=== PATIENT | female | born 1945 | race Two or more races ===

== ENCOUNTER 2017-08-06 14:24 | Inpatient (IN) | payer MEDICARE ==
[~2017-08-06] VITALS: Ht 160 cm; Wt 85.0 kg
[2017-08-06] MEDS ORDERED: SODIUM CHLORIDE 0.9% 1,000 ML IVB ONE (15:00)
[2017-08-06 15:10] LABS: Basophils # (auto) 0.2 uL; Basophils % (auto) 2.4 % (0.0-2.0); Eosinophils # (auto) 0.7 uL; Eosinophils % (auto) 8.3 % (0.0-7.0); Hematocrit 36.2 % (36.0-46.0); Lymphocytes % (auto) 24.1 % (10.0-50.0); Mean Corpuscular Hemoglobin 30.5 pg (28.0-32.0); Mean Corpuscular Hgb Conc. 33.3 g/dL (32.0-36.0); Mean Corpuscular Volume 91.7 fL (80.0-100.0); Monocytes # (auto) 0.5 uL; Monocytes % (auto) 6.6 % (0.0-12.0); Neutrophils # (auto) 4.9 uL; Neutrophils % (auto) 58.6 % (37.0-80.0); Nucleated Red Blood Cells % 0.1 %; Platelet Count (auto) 171 10^3/uL (140-450); Red Blood Cells 3.95 10^6/uL (4.0-5.20); Red Cell Distribution Width 13.6 % (11.8-14.3); White Blood Cell 8.3 10^3/uL (4.4-10.8)
[2017-08-06 15:31] LABS: Alanine Aminotransferase 19 U/L (13-56); Albumin 3.7 g/dL (3.4-5.0); Alkaline Phosphatase 60 U/L (45-117); Anion Gap 10 (5-15); Aspartate Aminotransferase 18 U/L (15-37); BUN/Creatinine Ratio 26.3; Bilirubin, Total 0.5 mg/dL (0.2-1.0); Blood Urea Nitrogen 26 mg/dL (7-18); Calcium 8.7 mg/dL (8.5-10.1); Carbon Dioxide 25 mmol/L (21-32); Chloride 106 mmol/L (98-107); GFR African American 72 mL/min; GFR Non-African American 59 mL/min; Glucose 83 mg/dL (74-106); INR 0.96 (0.9-1.15); Magnesium 2.7 mg/dL (1.6-2.6); Partial Thromboplastin Time 30.2 sec (22.64-33.71); Prothrombin Time 10.5 sec (9.37-12.3); Sodium 141 mmol/L (136-145); Total Protein 7.5 g/dL (6.4-8.2)
[2017-08-06] MEDS: SODIUM CHLORIDE 0.9% 1,000 ML IV SCH (16:00)
[2017-08-06] MEDS ORDERED: LABETALOL HCL 5 MG/ML ML 20ML VIAL IV PRN (16:30)
[2017-08-06] MEDS ORDERED: HYDROcodone-ACET 5/325MG TAB PO PRN (16:30)
[2017-08-06] MEDS ORDERED: LACTULOSE 20Gm/30ML SOLN PO PRN (16:30)
[2017-08-06] MEDS ORDERED: ALBUTEROL SULF 2.5 MG/0.5ML(0.5%) NEB SOLN NEB PRN (16:30)
[2017-08-06] MEDS ORDERED: MORPHINE SULFATE 4 MG/ML SYR/VIAL IV PRN ×2 (16:30)
[2017-08-06] MEDS ORDERED: LORazepam 0.5 MG TAB PO PRN (16:30)
[2017-08-06] MEDS ORDERED: NITROGLYCERIN 0.4 MG SL TAB SL PRN (16:30)
[2017-08-06 16:36] LABS: Urine Bacteria NONE SEEN /hpf (None Seen); Urine Blood Negative /uL (Negative); Urine WBC <1 /hpf (0 - 5)
[2017-08-06 17:10] LABS: Folate (Folic Acid) > 24.00 ng/mL (5.38-24)
[2017-08-06 20:27] VITALS: BP 136/61
[2017-08-06 21:15] VITALS: BP 127/49
[2017-08-06 21:48] VITALS: BP 127/49
[2017-08-06] MEDS: ATORVASTATIN 20 MG TAB PO SCH (22:10)
[2017-08-06] MEDS: TEMAZEPAM 15 MG CAP PO PRN (22:11)
[2017-08-06] MEDS: ACETAMINOPHEN 500 MG TAB PO PRN (22:11)
[2017-08-07] MEDS: SODIUM CHLORIDE 0.9% 1,000 ML IV SCH ×2 (04:49→14:00)
[2017-08-07 05:40] VITALS: BP 112/51
[2017-08-07 06:58] LABS: Cholesterol 158 mg/dL (< 200); HDL Cholesterol 59 mg/dL (40-59); LDL Cholesterol 87 mg/dL (< 100); Triglycerides 116 mg/dL (< 150)
[2017-08-07 09:00] VITALS: BP 124/69
[2017-08-07] MEDS: ENOXAPARIN SOD 40 MG/0.4 ML SYRINGE SC SCH (09:08)
[2017-08-07] MEDS: ACETAMINOPHEN 500 MG TAB PO PRN (09:09)
[2017-08-07] MEDS: ENALAPRIL MALEATE 2.5 MG TAB PO SCH (09:10)
[2017-08-07] MEDS: ASPirin 81 mg TAB PO SCH (09:11)
[2017-08-07] MEDS: PROMETHAZINE HCL 25 MG/ML 1ML IV PRN ×2 (11:20→18:35)
[2017-08-07 12:00] VITALS: BP 119/61
[2017-08-07] MEDS ORDERED: PANTOPRAZOLE 40 MG/10 ML VIAL IV ONE (13:30)
[2017-08-07] MEDS ORDERED: LORazepam 2MG/ML-1ML VIAL IV ONE (14:15)
[2017-08-07 15:00] VITALS: BP 108/60
[2017-08-07] MEDS: TEMAZEPAM 15 MG CAP PO PRN (21:31)
[2017-08-07] MEDS: ATORVASTATIN 20 MG TAB PO SCH (21:31)
[2017-08-07 22:00] VITALS: BP 146/67
[2017-08-07] MEDS ORDERED: PANTOPRAZOLE 40 MG/10 ML VIAL IV SCH (22:00)
[2017-08-08] VITALS (7 sets, daily range): BP systolic 100–144; BP diastolic 36–73
[2017-08-08] MEDS: PROMETHAZINE HCL 25 MG/ML 1ML IV PRN ×3 (02:25→17:16)
[2017-08-08] MEDS: SODIUM CHLORIDE 0.9% 1,000 ML IV SCH (06:52)
[2017-08-08 07:24] LABS: Basophils # (auto) 0.1 uL; Basophils % (auto) 1.3 % (0.0-2.0); Eosinophils # (auto) 0.8 uL; Eosinophils % (auto) 10.6 % (0.0-7.0); Hematocrit 30.2 % (36.0-46.0); Hemoglobin 10.3 g/dL (12.2-16.2); Lymphocytes % (auto) 27.4 % (10.0-50.0); Mean Corpuscular Hemoglobin 31.5 pg (28.0-32.0); Mean Corpuscular Hgb Conc. 34.1 g/dL (32.0-36.0); Mean Corpuscular Volume 92.2 fL (80.0-100.0); Monocytes # (auto) 0.6 uL; Neutrophils # (auto) 3.9 uL; Neutrophils % (auto) 52.7 % (37.0-80.0); Platelet Count (auto) 142 10^3/uL (140-450); Red Blood Cells 3.28 10^6/uL (4.0-5.20); Red Cell Distribution Width 13.3 % (11.8-14.3); White Blood Cell 7.3 10^3/uL (4.4-10.8)
[2017-08-08 07:52] LABS: BUN/Creatinine Ratio 21.4; Calcium 8.5 mg/dL (8.5-10.1); Magnesium 2.5 mg/dL (1.6-2.6); Potassium 4.5 mmol/L (3.5-5.1)
[2017-08-08] MEDS: PANTOPRAZOLE 40 MG TAB PO SCH (08:36)
[2017-08-08] MEDS: ACETAMINOPHEN 500 MG TAB PO PRN (08:40)
[2017-08-08] MEDS ORDERED: B CO PO (09:35)
[2017-08-08] MEDS ORDERED: CHOL3000 PO (09:35)
[2017-08-08] MEDS ORDERED: [UNRECOGNIZED DRUG - CODE] PO (09:35)
[2017-08-08] MEDS ORDERED: ZOLP10TA6 PO (09:35)
[2017-08-08] MEDS ORDERED: IPRA0.03 (09:35)
[2017-08-08] MEDS ORDERED: FOLI1TAB6 PO (09:35)
[2017-08-08] MEDS ORDERED: AMLO5TAB2 PO (09:35)
[2017-08-08] MEDS ORDERED: ROPI1TAB22 PO (09:35)
[2017-08-08] MEDS ORDERED: FLUT0.05 NAS (09:35)
[2017-08-08] MEDS ORDERED: GABA100C9 PO (09:35)
[2017-08-08] MEDS ORDERED: OMEP20CA74 PO (09:35)
[2017-08-08] MEDS ORDERED: LEVO25TA6 PO (09:35)
[2017-08-08] MEDS ORDERED: NITR0.4S29 SL (09:35)
[2017-08-08] MEDS ORDERED: ASPI-378 PO (09:35)
[2017-08-08] MEDS ORDERED: ESTR1TAB3 PO (09:35)
[2017-08-08] MEDS ORDERED: IPR002IS HHN (09:35)
[2017-08-08] MEDS ORDERED: ESCI5TAB PO (09:35)
[2017-08-08] MEDS: ASPirin 81 mg TAB PO SCH (10:11)
[2017-08-08] MEDS: ENOXAPARIN SOD 40 MG/0.4 ML SYRINGE SC SCH (10:12)
[2017-08-08] MEDS: ENALAPRIL MALEATE 2.5 MG TAB PO SCH (10:12)
[2017-08-08] MEDS: GABAPENTIN 100 MG CAP PO SCH ×2 (17:22→21:41)
[2017-08-08] MEDS: ATORVASTATIN 20 MG TAB PO SCH (21:41)
[2017-08-08] MEDS: TEMAZEPAM 15 MG CAP PO PRN (21:41)
[2017-08-09 05:24] VITALS: BP 133/69
[2017-08-09] MEDS: GABAPENTIN 100 MG CAP PO SCH ×4 (06:15→21:37)
[2017-08-09] MEDS: SODIUM CHLORIDE 0.9% 1,000 ML IV SCH ×2 (06:36→12:06)
[2017-08-09] MEDS ORDERED: FURO40TA4 PO (08:05)
[2017-08-09] MEDS: ASPirin 81 mg TAB PO SCH (09:03)
[2017-08-09] MEDS: PANTOPRAZOLE 40 MG TAB PO SCH (09:03)
[2017-08-09] MEDS: ENOXAPARIN SOD 40 MG/0.4 ML SYRINGE SC SCH (09:03)
[2017-08-09 10:46] VITALS: BP 129/64
[2017-08-09 13:00] VITALS: BP 135/71
[2017-08-09 14:00] VITALS: BP 118/52
[2017-08-09] MEDS: ALBUTEROL SULF 2.5 MG/0.5ML(0.5%) NEB SOLN NEB PRN (19:34)
[2017-08-09] MEDS: IPRATROPIUM BROM 0.5 MG/2.5ML INH SOL NEB PRN (19:35)
[2017-08-09 20:15] VITALS: BP 118/52
[2017-08-09] MEDS: ATORVASTATIN 20 MG TAB PO SCH (21:37)
[2017-08-09] MEDS: TEMAZEPAM 15 MG CAP PO PRN (21:38)
[2017-08-09 22:00] VITALS: BP 121/92
[2017-08-10 05:00] VITALS: BP 110/54
[2017-08-10] MEDS: GABAPENTIN 100 MG CAP PO SCH ×4 (05:52→21:34)
[2017-08-10 08:16] VITALS: BP 141/69
[2017-08-10] MEDS: ENOXAPARIN SOD 40 MG/0.4 ML SYRINGE SC SCH (10:00)
[2017-08-10] MEDS: SODIUM CHLORIDE 0.9% 1,000 ML IV SCH (10:58)
[2017-08-10] MEDS: PANTOPRAZOLE 40 MG TAB PO SCH (10:58)
[2017-08-10] MEDS: ASPirin 81 mg TAB PO SCH (10:58)
[2017-08-10] MEDS: PROMETHAZINE HCL 25 MG/ML 1ML IV PRN ×2 (11:02→17:51)
[2017-08-10] MEDS: ACETAMINOPHEN 500 MG TAB PO PRN ×2 (11:07→17:51)
[2017-08-10 13:25] VITALS: BP 136/50
[2017-08-10] MEDS ORDERED: SODIUM CHLORIDE 0.9% 1,000 ML IV SCH (13:30)
[2017-08-10 17:18] VITALS: BP 122/84
[2017-08-10] MEDS: ALBUTEROL SULF 2.5 MG/0.5ML(0.5%) NEB SOLN NEB PRN (21:13)
[2017-08-10] MEDS: IPRATROPIUM BROM 0.5 MG/2.5ML INH SOL NEB PRN (21:13)
[2017-08-10] MEDS: ATORVASTATIN 20 MG TAB PO SCH (21:44)
[2017-08-10] MEDS: TEMAZEPAM 15 MG CAP PO PRN (21:45)
[2017-08-10 22:00] VITALS: BP 131/79
[2017-08-11 05:00] VITALS: BP 126/60
[2017-08-11 05:42] LABS: Basophils # (auto) 0.1 uL; Basophils % (auto) 1.5 % (0.0-2.0); Eosinophils % (auto) 13.4 % (0.0-7.0); Lymphocytes # (auto) 1.8 uL; Lymphocytes % (auto) 23.7 % (10.0-50.0); Mean Corpuscular Hemoglobin 30.7 pg (28.0-32.0); Mean Corpuscular Hgb Conc. 33.4 g/dL (32.0-36.0); Mean Corpuscular Volume 91.9 fL (80.0-100.0); Monocytes # (auto) 0.7 uL; Monocytes % (auto) 8.6 % (0.0-12.0); Neutrophils # (auto) 4.1 uL; Neutrophils % (auto) 52.8 % (37.0-80.0); Platelet Count (auto) 159 10^3/uL (140-450); Red Blood Cells 3.59 10^6/uL (4.0-5.20); Red Cell Distribution Width 13.4 % (11.8-14.3); White Blood Cell 7.7 10^3/uL (4.4-10.8)
[2017-08-11 06:08] LABS: BUN/Creatinine Ratio 24.3; Calcium 8.6 mg/dL (8.5-10.1); Potassium 4.7 mmol/L (3.5-5.1)
[2017-08-11] MEDS ORDERED: LEVOTHYROXINE SODIUM 25 MCG TAB PO SCH (07:00)
[2017-08-11] MEDS: PROMETHAZINE HCL 25 MG/ML 1ML IV PRN (07:00)
[2017-08-11] MEDS: GABAPENTIN 100 MG CAP PO SCH (07:00)
[2017-08-11 08:31] VITALS: BP 156/79
[2017-08-11] MEDS: ASPirin 81 mg TAB PO SCH (08:51)
[2017-08-11] MEDS: PANTOPRAZOLE 40 MG TAB PO SCH (08:51)
[2017-08-11] MEDS: ENOXAPARIN SOD 40 MG/0.4 ML SYRINGE SC SCH (08:51)
[2017-08-11] MEDS ORDERED: METOCLOPRAMIDE HCL 5MG/ml INJ 2ml VIAL IV STA (11:26)
[2017-08-11] MEDS ORDERED: METOCLOPRAMIDE HCL 5MG/ml INJ 2ml VIAL ONE (11:29)
== END 2017-08-11 11:30 | disposition short-term general hospital (02) | DRG 149 ==
LOC: EDBD 14:24 → ER 14:24 → TELE-WESTW 14:25
PROVIDERS: ADMIT Internal Medicine; ATTEND Internal Medicine
DX: H81.10 Benign paroxysmal vertigo, unspecified ear (principal); J96.11 Chronic respiratory failure with hypoxia; J44.9 Chronic obstructive pulmonary disease, unspecified; E83.41 Hypermagnesemia; F17.200 Nicotine dependence, unspecified, uncomplicated; E66.9 Obesity, unspecified; E03.9 Hypothyroidism, unspecified; I25.10 Atherosclerotic heart disease of native coronary artery without angina pectoris; R55 Syncope and collapse; I12.9 Hypertensive chronic kidney disease with stage 1 through stage 4 chronic kidney disease, or unspecified chronic kidney disease; N18.9 Chronic kidney disease, unspecified; Z82.49 Family history of ischemic heart disease and other diseases of the circulatory system; Z90.710 Acquired absence of both cervix and uterus; Z83.3 Family history of diabetes mellitus; Z95.2 Presence of prosthetic heart valve; Z88.5 Allergy status to narcotic agent; Z88.8 Allergy status to other drugs, medicaments and biological substances; Z68.33 Body mass index [BMI] 33.0-33.9, adult
CPT/HCPCS: 36415; 70450; 70551; 71045; 80048; 80053; 80061; 81001; 82550; 82607; 82746; 83735; 83880; 84443; 84484; 85025; 85610; 85652; 85730; 87081; 93005; 93306; 93886; 94640; 94761; 96360; C9113

== ENCOUNTER 2017-09-08 12:47 | Emergency (ER) | payer MEDICARE ==
[~2017-09-08] VITALS: Ht 160 cm; Wt 77.1 kg
[~2017-09-08 12:47] MED LIST: AMLO5TAB2 PO; ASPI-378 PO; B CO PO; CHOL3000 PO; ESCI5TAB PO; ESTR1TAB3 PO; FLUT0.05 NAS; FOLI1TAB6 PO; FURO40TA4 PO; GABA100C9 PO; IPR002IS HHN; LEVO25TA6 PO; NITR0.4S29 SL; OMEP20CA74 PO; ROPI1TAB22 PO; ZOLP10TA6 PO; [UNRECOGNIZED DRUG - CODE] PO
[2017-09-08 14:06] VITALS: BP 120/62
== END 2017-09-08 15:41 | disposition home or self-care (01) ==
LOC: ER 12:47
DX: S51.012A Laceration without foreign body of left elbow, initial encounter (principal); R07.89 Other chest pain; J44.9 Chronic obstructive pulmonary disease, unspecified; I10 Essential (primary) hypertension; E07.89 Other specified disorders of thyroid; Z90.710 Acquired absence of both cervix and uterus; Z90.89 Acquired absence of other organs; Z87.891 Personal history of nicotine dependence; Z79.899 Other long term (current) drug therapy; Z88.6 Allergy status to analgesic agent; Z88.8 Allergy status to other drugs, medicaments and biological substances; W01.0XXA Fall on same level from slipping, tripping and stumbling without subsequent striking against object, initial encounter; Y93.89 Activity, other specified; Y99.8 Other external cause status; Y92.89 Other specified places as the place of occurrence of the external cause
CPT/HCPCS: 36415; 71046; 84484; 93005